=== PATIENT | male | born 1965 | race Native Hawaiian/Other Pacific Islander ===

== ENCOUNTER → 2017-06-07 | Outpatient (CLI) | payer MEDICAID ==
--- NOTE | 2017-06-07 11:32 | XR ---
EXAMINATION TYPE: XR knee complete LT DATE OF EXAM: 06/07/2017 COMPARISON: NONE HISTORY: Pain TECHNIQUE: 3 views are submitted. FINDINGS: Mild narrowing of the medial compartment knee joint and patellofemoral joint. Small amount of fluid i n the suprapatellar bursa.. Osseous structures are intact. No acute fracture seen. IMPRESSION: 1. No acute fracture or dislocation. 2. Mild arthropathy. If there is concern for internal derangement correlate with MRI.
== END | disposition home or self-care (01) ==
LOC: RADXRMAIN 10:25
PROVIDERS: ATTEND Family Medicine
DX: M12.862 Other specific arthropathies, not elsewhere classified, left knee (principal)

== ENCOUNTER 2017-06-20 13:18 | Day surgery (SDC) | payer MEDICAID ==
[~2017-06-20 13:18] MED LIST: LACTATED RINGERS 1,000 ML IV SCH
[2017-06-20] MEDS ORDERED: LIDOCAINE 1% 20 ML VIAL (10MG/ML) FOR IV START INTRADERMA ONE (13:27)
[2017-06-20 13:40] VITALS: TEMP 98.6
[2017-06-20] MEDS ORDERED: GLUCAGON 1 MG/ML VIAL ONE (14:04)
[2017-06-20] MEDS ORDERED: PROPOFOL 10 MG/ML 20 ML VIAL IV ONE (14:04)
--- NOTE | 2017-06-20 14:05 | P.GSHP ---
History of Present Illness H&P Date: 06/20/17 Chief Complaint: Screening colonoscopy This a 51-year-old male referred from Dr. Sissy de la fuente. Patient notes today for screening colonoscopy. Past Medical History Past Medical History: No Reported History History of Any Multi-Drug Resistant Organisms: None Reported Past Surgical History: Orthopedic Surgery Additional Past Surgical History / Comment(s): RIGHT HAND SURGERY (THUMB) Past Anesthesia/Blood Transfusion Reactions: Motion Sickness Past Psychological History: No Psychological Hx Reported Smoking Status: Never smoker Past Alcohol Use History: Rare Past Drug Use History: None Reported - Past Family History Mother Family Medical History: Cancer, Deep Vein Thrombosis (DVT) Father Family Medical History: Cancer Brother(s) Family Medical History: Cancer Additional Family Medical History / Comment(s): THREE DIFFERENT BROTHERS. Medications and Allergies Home Medications Medication Instructions Recorded Confirmed Type Multivitamins, Thera [Multivitamin 1 tab PO DAILY 06/18/17 06/20/17 History (formulary)] Allergies Allergy/AdvReac Type Severity Reaction Status Date / Time No Known Allergies Allergy Verified 06/18/17 15:56 Surgical - Exam Vital Signs Temp Pulse Resp BP Pulse Ox 98.6 F 84 16 115/81 95 06/20/17 13:32 06/20/17 13:32 06/20/17 13:32 06/20/17 13:32 06/20/17 13:32 - General well developed, no distress - Eyes PERRL - ENT normal pinna - Neck no masses - Respiratory normal expansion - Cardiovascular Rhythm: regular - Abdomen Abdomen: soft, non tender Assessment and Plan Assessment: We'll perform screening colonoscopy.
--- NOTE | 2017-06-20 14:16 | P.OP ---
Date of Procedure: 06/20/17 Preoperative Diagnosis: Screening colonoscopy Postoperative Diagnosis: Diverticulosis Procedure(s) Performed: Colonoscopy Anesthesia: MAC Surgeon: Omid Farfan Pathology: none sent Condition: stable Disposition: PACU Description of Procedure: The patient's placed on the endoscopy table lateral position. He received IV sedation. Digital rectal exam was performed which revealed no abnormalities. The prostate was symmetric without nodules. The flexible colonoscope was then placed patient anus passed throughout the entire colon. The ileocecal valve was visualized. The cecum, ascending and transverse colon appeared normal. In the descending; there is moderate diverticular changes. The scope was then brought back the rectum and this appeared normal. Scope was withdrawn for patient.
[2017-06-20 14:46] VITALS: BP 129/80; PULSE 77; RESP 16
== END 2017-06-20 14:54 | disposition home or self-care (01) ==
LOC: ORWHC2ENDO 13:18
PROVIDERS: ATTEND Surgery
DX: Z12.11 Encounter for screening for malignant neoplasm of colon (principal); K57.30 Diverticulosis of large intestine without perforation or abscess without bleeding
CPT/HCPCS: J1610; J2704; G0121; 45378

== ENCOUNTER → 2019-04-19 | Outpatient (CLI) | payer MEDICAID ==
--- NOTE | 2019-04-19 14:07 | CT ---
EXAMINATION TYPE: CT chest w con DATE OF EXAM: 04/19/2019 COMPARISON: None consult HISTORY: Prior Asbestos exposure. Complains of shortness of breath and dizziness on exertion CT DLP: 420.8 mGycm Automated exposure control for dose reduction was used. CONTRAST: CT scan of the chest is performed with IV Contrast, patient injected with 100 mL of Isovue 300. FINDINGS: LUNGS: The lungs are grossly clear, there is no concerning parenchymal mass or nodule identified. Pos sible minimal scarring or atelectatic changes at the lung bases There is no pleural effusion or pne umothorax seen. The tracheobronchial tree is patent. MEDIASTINUM: There are no greater than 1 cm hilar or mediastinal lymph nodes. No pericardial effusi on is seen. AORTA: Ascending aorta borderline aneurysmal at 4.3 cm. There are some coronary artery calcification s. Proximal descending aorta also ectatic at 3 cm.. OTHER: No additional significant abnormality is seen. IMPRESSION: Aortic aneurysm, follow-up recommended. Coronary artery disease.
== END | disposition home or self-care (01) ==
LOC: RADCTMAIN 11:14
PROVIDERS: ATTEND Family Medicine
DX: I25.10 Atherosclerotic heart disease of native coronary artery without angina pectoris (principal); I71.9 Aortic aneurysm of unspecified site, without rupture
CPT/HCPCS: 71260; Q9967

== ENCOUNTER 2020-11-12 19:09 | Emergency (ER) | payer MEDICAID ==
[2020-11-12 19:14] VITALS: TEMP 98.8
--- NOTE | 2020-11-12 19:41 | ED ---
Psych HPI - General Source: patient, police Mode of arrival: ambulatory <Kenton Pizarro - Last Filed: 11/12/20 22:32> <True Menendez - Last Filed: 11/13/20 01:14> - General Chief Complaint: Psychiatric Symptoms Stated Complaint: Petition Time Seen by Provider: 11/12/20 19:19 - History of Present Illness Initial Comments: This 54-year-old male with a history of depression and alcohol use in the past who presents emergency department for possible suicidal ideation. The patient reportedly made a comment to his that he was going to hang himself. The police were called and brought emergency department. The patient is currently petitioned by police. The patient is quite upset and states that he did not say this to his . He does admit to drinking today. He denies any physical complaints. The patient was quite agitated on arrival however was able to be talked down. Denies any suicidal or homicidal ideations at this time. (Kenton Pizarro) - Related Data Home Medications Medication Instructions Recorded Confirmed Escitalopram Oxalate [Lexapro] 20 mg PO DAILY 11/12/20 11/12/20 Mirtazapine [Remeron] 15 mg PO HS 11/12/20 11/12/20 QUEtiapine [SEROquel] 50 mg PO HS 11/12/20 11/12/20 Allergies Allergy/AdvReac Type Severity Reaction Status Date / Time No Known Allergies Allergy Verified 11/12/20 21:14 Review of Systems ROS Other: All systems not noted in ROS Statement are negative. <Kenton Pizarro - Last Filed: 11/12/20 22:32> ROS Other: All systems not noted in ROS Statement are negative. <True Menendez - Last Filed: 11/13/20 01:14> ROS Statement: Those systems with pertinent positive or pertinent negative responses have been documented in the HPI. Past Medical History Past Medical History: No Reported History History of Any Multi-Drug Resistant Organisms: None Reported Past Surgical History: Orthopedic Surgery Additional Past Surgical History / Comment(s): RIGHT HAND SURGERY (THUMB) Past Anesthesia/Blood Transfusion Reactions: Motion Sickness Past Psychological History: Depression Smoking Status: Current every day smoker Past Alcohol Use History: Rare Past Drug Use History: None Reported - Past Family History Mother Family Medical History: Cancer, Deep Vein Thrombosis (DVT) Father Family Medical History: Cancer Brother(s) Family Medical History: Cancer Additional Family Medical History / Comment(s): THREE DIFFERENT BROTHERS. <JuarezKenton - Last Filed: 11/12/20 22:32> General Exam Limitations: no limitations <JuarezKenton - Last Filed: 11/12/20 22:32> - General Exam Comments Initial Comments: Constitutional: Awake alert Appears comfortable Head: Normocephalic atraumatic Eyes: no conjunctival injection No scleral icterus EOMI Neck: No JVD Supple Heart: Regular rate rhythm normal S1-S2 no murmurs Lungs: Clear to auscultation bilaterally No wheezing No rales Abdomen: Soft nondistended nontender Extremities: Non edematous DP pulses intact Radial pulses intact Neuro: A&Ox3 No focal neurologic deficits Psych: He appears intoxicated and is quite agitated at this time. Denies suicidal ideation (Kenton Pizarro) Course <Kenton Pizarro - Last Filed: 11/12/20 22:32> <True Menendez - Last Filed: 11/13/20 01:14> Vital Signs 11/12/20 19:11 Temperature 98.8 F Pulse Rate 95 Respiratory 20 Rate Blood Pressure 138/83 O2 Sat by Pulse 96 Oximetry - Reevaluation(s) Reevaluation #1: 11/12/20 22:33 Patient is sleeping. Awaiting sobriety. Should be around midnight. Will need re- eval once sober to see if psych eval is required. (Kenton Pizarro) Reevaluation #2: 11/13/20 01:13 Record was reviewed (True Menendez) Reevaluation #3: 11/13/20 01:13 Patient's medically clear for psychiatric evaluation (True Menendez) Medical Decision Making <True Menendez - Last Filed: 11/13/20 01:14> - Medical Decision Making 54 male who was seen and evaluated by psychiatry here in the ER, patient originally presented to emergency room under alcohol intoxication. Patient is seen and evaluated here not currently suicidal or homicidal. Patient consents to safety and can be discharged home (True Menendez) - Lab Data Lab Results 11/12/20 Range/Units 19:43 Urine Opiates Screen Not Detected (NotDetected) Ur Oxycodone Screen Not Detected (NotDetected) Urine Methadone Screen Not Detected (NotDetected) Ur Propoxyphene Screen Not Detected (NotDetected) Ur Barbiturates Screen Detected H (NotDetected) U Tricyclic Antidepress Not Detected (NotDetected) Ur Phencyclidine Scrn Not Detected (NotDetected) Ur Amphetamines Screen Not Detected (NotDetected) U Methamphetamines Scrn Not Detected (NotDetected) U Benzodiazepines Scrn Not Detected (NotDetected) Urine Cocaine Screen Not Detected (NotDetected) U Marijuana (THC) Screen Not Detected (NotDetected) Disposition <Kenton Pizarro - Last Filed: 11/12/20 22:32> Is patient prescribed a controlled substance at d/c from ED?: No <True Menendez - Last Filed: 11/13/20 01:14> Clinical Impression: Alcohol intoxication Disposition: HOME SELF-CARE Condition: Fair Instructions (If sedation given, give patient instructions): Alcohol Intoxication (ED) Referrals: Sissy Mckee DO [Primary Care Provider] - 1-2 days
[2020-11-12 21:06] LABS: Amphetamine Screen,Urine Not Detected (NotDetected); Barbiturate Screen,Urine Detected (NotDetected); Benzodiazepines Screen,Urine Not Detected (NotDetected); Cocaine Screen,Urine Not Detected (NotDetected); Methadone Screen, Urine Not Detected (NotDetected); Opiate Screen,Urine Not Detected (NotDetected); Oxycodone Screen, Urine Not Detected (NotDetected); Phencyclidine Screen,Urine Not Detected (NotDetected); Tricyclic Antidepressant,Urine Not Detected (NotDetected); Urn Cannabinoid Scrn Not Detected (NotDetected)
[2020-11-13 01:34] VITALS: BP 150/92; PULSE 71; RESP 1
== END 2020-11-13 01:34 | disposition home or self-care (01) ==
LOC: EC 19:09
DX: F10.129 Alcohol abuse with intoxication, unspecified (principal); F32.9 Major depressive disorder, single episode, unspecified; F17.200 Nicotine dependence, unspecified, uncomplicated; Y90.9 Presence of alcohol in blood, level not specified
CPT/HCPCS: 80306; 82075; 99284

== ENCOUNTER → 2022-04-26 | Outpatient (CLI) | payer OTHER ==
--- NOTE | 2022-04-26 15:51 | MR ---
EXAMINATION TYPE: MR brain wo/w con DATE OF EXAM: 04/26/2022 COMPARISON: None HISTORY: Visual loss. TECHNIQUE: Multiplanar, multisequence images of the brain and brainstem is performed without and with IV contras t, utilizing 9 mL intravenous Gadavist . FINDINGS: Diffusion weighted images demonstrate no evidence of a recent infarct or other diffusion ab normality. Foci of T2 shine through demonstrated within the right frontal lobe cortex. There is no ex tra-axial fluid collection. Few periventricular and subcortical white matter T2/FLAIR hyperintense fo ci identified. The ventricular system and cisternal spaces are normal in size and appearance. The br ain volume is age appropriate. Midline structures demonstrate normal morphology. The craniocervical junction appears within normal limits. Post contrast images demonstrate no abnormal enhancement. The dural venous sinuses appear pa tent. 1.2 cm right maxillary sinus mucous retention cyst. The remaining visualized sinuses are clear and the globes are intact. IMPRESSION: 1. No acute/subacute ischemia or abnormal contrast enhancement. 2. Nonspecific white matter changes likely related to chronic microangiopathy.
== END | disposition home or self-care (01) ==
LOC: RADMRIMAIN 04-14 13:24
PROVIDERS: ATTEND Physician Assistant
DX: R90.82 White matter disease, unspecified (principal); H53.8 Other visual disturbances; R51.9 Headache, unspecified; R20.0 Anesthesia of skin; H53.121 Transient visual loss, right eye
CPT/HCPCS: 70553; A9585

== ENCOUNTER 2022-08-18 19:42 | Emergency (ER) | payer OTHER ==
[2022-08-18] MEDS ORDERED: SODIUM CHLORIDE 0.9% 1,000 ML IV ONE (20:40)
--- NOTE | 2022-08-18 21:12 | ED ---
General Adult HPI - General Source: patient, police, RN notes reviewed Mode of arrival: ambulatory Limitations: no limitations <Holly Lama - Last Filed: 08/19/22 16:20> <Comfort Calabrese - Last Filed: 08/23/22 07:28> - General Chief complaint: Psychiatric Symptoms Stated complaint: Mental Health Time Seen by Provider: 08/18/22 20:06 - History of Present Illness Initial comments: 56-year-old male with significant past medical history presents the emergency department via police escort with a chief complaint of suicidal ideation and worsening depression. He reports that earlier today he was making threats that he wanted to commit suicide. He reports that he was attempting to walk into oncoming traffic. He denies homicidal ideation at this time. He reports that he has been battling depressive and suicidal thoughts for "a long time." He denies any visual or auditory hallucinations. He denies any illicit drug use. He does report having a small amount of breath and prior to arrival. Denies any specific complaints such as headache, dizziness, lightheaded, cough, chest pain, shortness of breath, abdominal pain, nausea, vomiting, melena, hematochezia (Holly Lama) - Related Data Home Medications Medication Instructions Recorded Confirmed No Known Home Medications 08/18/22 08/18/22 Allergies Allergy/AdvReac Type Severity Reaction Status Date / Time No Known Allergies Allergy Verified 08/18/22 22:16 Review of Systems ROS Other: All systems not noted in ROS Statement are negative. <Holly Lama - Last Filed: 08/19/22 16:20> ROS Other: All systems not noted in ROS Statement are negative. <Comfort Calabrese - Last Filed: 08/23/22 07:28> ROS Statement: Those systems with pertinent positive or pertinent negative responses have been documented in the HPI. Past Medical History Past Medical History: No Reported History History of Any Multi-Drug Resistant Organisms: None Reported Past Surgical History: Orthopedic Surgery Additional Past Surgical History / Comment(s): RIGHT HAND SURGERY (THUMB) Past Anesthesia/Blood Transfusion Reactions: Motion Sickness Past Psychological History: Depression Smoking Status: Current every day smoker Past Alcohol Use History: Rare Past Drug Use History: None Reported - Past Family History Mother Family Medical History: Cancer, Deep Vein Thrombosis (DVT) Father Family Medical History: Cancer Brother(s) Family Medical History: Cancer Additional Family Medical History / Comment(s): THREE DIFFERENT BROTHERS. <Holly Lama - Last Filed: 08/19/22 16:20> General Exam Limitations: no limitations <DainaHolly - Last Filed: 08/19/22 16:20> General appearance: alert, in no apparent distress Head exam: Present: atraumatic, normocephalic, normal inspection Eye exam: Present: normal appearance, PERRL, EOMI. Absent: scleral icterus, conjunctival injection, periorbital swelling ENT exam: Present: normal exam, mucous membranes moist Neck exam: Present: normal inspection. Absent: tenderness, meningismus, lymphadenopathy Respiratory exam: Present: normal lung sounds bilaterally. Absent: respiratory distress, wheezes, rales, rhonchi, stridor Cardiovascular Exam: Present: regular rate, normal rhythm, normal heart sounds. Absent: systolic murmur, diastolic murmur, rubs, gallop, clicks GI/Abdominal exam: Present: soft, normal bowel sounds. Absent: distended, tenderness, guarding, rebound, rigid Extremities exam: Present: normal inspection, full ROM, normal capillary refill. Absent: tenderness, pedal edema, joint swelling, calf tenderness Back exam: Present: normal inspection Neurological exam: Present: alert, oriented X3, CN II-XII intact Psychiatric exam: Present: depressed Skin exam: Present: warm, dry, intact, normal color. Absent: rash <Comfort Calabrese - Last Filed: 08/23/22 07:28> Course <DainaHolly - Last Filed: 08/19/22 16:20> Vital Signs 08/18/22 08/20/22 08/21/22 19:44 06:00 11:50 Temperature 98.0 F 98.1 F Pulse Rate 100 100 65 Respiratory 20 15 18 Rate Blood Pressure 144/94 100/62 117/72 O2 Sat by Pulse 99 99 98 Oximetry 08/22/22 07:35 Temperature 97.9 F Pulse Rate 75 Respiratory 16 Rate Blood Pressure 107/73 O2 Sat by Pulse 99 Oximetry - Reevaluation(s) Reevaluation #1: 08/19/22 01:31 EPS in to evaluate the patient. (Holly Lama) Reevaluation #2: 08/19/22 03:09 Case discussed with EPS who reveals the patient is from [facility]. Dr. Jones aware who will fax over a transfer request. Patient will await psychiatric placement. (Holly Lama) Medical Decision Making - Lab Data Result diagrams: 08/18/22 20:05 08/18/22 20:05 <Holly Lama - Last Filed: 08/19/22 16:20> - Lab Data Result diagrams: 08/18/22 20:05 08/18/22 20:05 <Comfort Calabrese - Last Filed: 08/23/22 07:28> - Medical Decision Making Was pt. sent in by a medical professional or institution (, PA, NUCLEAR MEDICINE SUPERVISOR, urgent care, hospital, or [facility]...) When possible be specific @ -[No] Did you speak to anyone other than the patient for history (EMS, parent, family, police, friend...)? What history was obtained from this source @ -[No] Did you review nursing and triage notes (agree or disagree)? Why? @ -[I reviewed and agree with nursing and triage notes] Were old charts reviewed (outside hosp., previous admission, EMS record, old EKG, old radiological studies, urgent care reports/EKG's, [facility] records)? Report findings @ -[No old charts were reviewed] Differential Diagnosis (chest pain, altered mental status, abdominal pain women, abdominal pain men, vaginal bleeding, weakness, fever, dyspnea, syncope, headache, dizziness, GI bleed, back pain, seizure, CVA, palpatations, mental health, musculoskeletal)? @ -[not applicable] EKG interpreted by me (3pts min.). @ -[As above] X-rays interpreted by me (1pt min.). @ -[None done] CT interpreted by me (1pt min.). @ -[None done] U/S interpreted by me (1pt. min.). @ -[None done] What testing was considered but not performed or refused? (CT, X-rays, U/S, labs)? Why? @ -[None] What meds were considered but not given or refused? Why? @ -[None] Did you discuss the management of the patient with other professionals (professionals i.e. , PA, NUCLEAR MEDICINE SUPERVISOR, lab, RT, psych nurse, social worker clinical, dental cream maker, teacher, ambulance officer, case making machine operator)? Give summary @ -[No] Was smoking cessation discussed for >3mins.? @ -[No] Was critical care preformed (if so, how long)? @ -[No] Were there social determinants of health that impacted care today? How? (Home lessness, low income, unemployed, alcoholism, drug addiction, transportation, low edu. Level, literacy, decrease access to med. care, longterm, rehab)? @ -[No] Was there de-escalation of care discussed even if they declined (Discuss DNR or withdrawal of care, Hospice)? DNR status @ -[No] What co-morbidities impacted this encounter? (DM, HTN, Smoking, COPD, CAD, Cancer, CVA, ARF, Chemo, Hep., AIDS, mental health diagnosis, sleep apnea, morbid obesity)? @ -[None] Was patient admitted / discharged? Hospital course, mention meds given and route, prescriptions, significant lab abnormalities, going to OR and other pertinent info. @ -Transfer to psychiatric facility. This is a 56-year-old male who presents to the emergency department with suicidal ideation and depression. Patient had a thorough history and physical exam performed heart rate regular rate and rhythm, lungs clear to auscultation bilaterally abdomen is soft and non-tender. The patient appears depressed. He was given 1 mg of by mouth Ativan. He is refusing IV at this time. Blood work and Covid tests were unremarkable. He was seen and evaluated by the EPS nurse who believes the klaus ent meets inpatient psychiatric placement. [place] and we will wait for transfer and placement and [facility]. Case discussed with KEV Zamora who agrees with plan of care. Undiagnosed new problem with uncertain prognosis? @ -[No] Drug Therapy requiring intensive monitoring for toxicity (Heparin, Nitro, Insulin, Cardizem)? @ -[No] Were any procedures done? @ -[No] Diagnosis/symptom? @ -Suicidal Ideation - Depression Acute, or Chronic, or Acute on Chronic? @ -Acute Uncomplicated (without systemic symptoms) or Complicated (systemic symptoms)? @ -uncomplicated Side effects of treatment? @ -[No] Exacerbation, Progression, or Severe Exacerbation? @ -[No] Poses a threat to life or bodily function? How? (Chest pain, [place], DE, pneumonia, PE, COPD, DKA, ARF, appy, cholecystitis, CVA, Diverticulitis, Homicidal, Suicidal, threat to staff... and all critical care pts) @ -high likelihood, including (Holly Lama) I filled the certification out on the patient (BharatiComfort Annalisa) - Lab Data Lab Results 08/18/22 08/18/22 08/18/22 Range/Units 20:05 20:05 20:05 WBC 5.2 (3.8-10.6) k/uL RBC 4.90 (4.30-5.90) m/uL Hgb 15.0 (13.0-17.5) gm/dL Hct 44.1 (39.0-53.0) % MCV 90.0 (80.0-100.0) fL MCH 30.6 (25.0-35.0) pg MCHC 34.0 (31.0-37.0) g/dL RDW 11.9 (11.5-15.5) % Plt Count 292 (150-450) k/uL MPV 7.8 Neutrophils % 63 % Lymphocytes % 25 % Monocytes % 7 % Eosinophils % 2 % Basophils % 0 % Neutrophils # 3.3 (1.3-7.7) k/uL Lymphocytes # 1.3 (1.0-4.8) k/uL Monocytes # 0.4 (0-1.0) k/uL Eosinophils # 0.1 (0-0.7) k/uL Basophils # 0.0 (0-0.2) k/uL Sodium 142 (137-145) mmol/L Potassium 3.7 (3.5-5.1) mmol/L Chloride 103 (98-107) mmol/L Carbon Dioxide 28 (22-30) mmol/L Anion Gap 11 mmol/L BUN 8 L (9-20) mg/dL Creatinine 0.69 (0.66-1.25) mg/dL Est GFR (CKD-EPI)AfAm >90 (>60 ml/min/1.73 sqM) Est GFR (CKD-EPI)NonAf >90 (>60 ml/min/1.73 sqM) Glucose 91 (74-99) mg/dL Calcium 8.9 (8.4-10.2) mg/dL Urine Opiates Screen (NotDetected) Ur Oxycodone Screen (NotDetected) Urine Methadone Screen (NotDetected) Ur Propoxyphene Screen (NotDetected) Ur Barbiturates Screen (NotDetected) U Tricyclic Antidepress (NotDetected) Ur Phencyclidine Scrn (NotDetected) Ur Amphetamines Screen (NotDetected) U Methamphetamines Scrn (NotDetected) U Benzodiazepines Scrn (NotDetected) Urine Cocaine Screen (NotDetected) U Marijuana (THC) Screen (NotDetected) Coronavirus (PCR) Not Detected (Not Detectd) 08/18/22 08/22/22 Range/Units 20:10 01:43 WBC (3.8-10.6) k/uL RBC (4.30-5.90) m/uL Hgb (13.0-17.5) gm/dL Hct (39.0-53.0) % MCV (80.0-100.0) fL MCH (25.0-35.0) pg MCHC (31.0-37.0) g/dL RDW (11.5-15.5) % Plt Count (150-450) k/uL MPV Neutrophils % % Lymphocytes % % Monocytes % % Eosinophils % % Basophils % % Neutrophils # (1.3-7.7) k/uL Lymphocytes # (1.0-4.8) k/uL Monocytes # (0-1.0) k/uL Eosinophils # (0-0.7) k/uL Basophils # (0-0.2) k/uL Sodium (137-145) mmol/L Potassium (3.5-5.1) mmol/L Chloride (98-107) mmol/L Carbon Dioxide (22-30) mmol/L Anion Gap mmol/L BUN (9-20) mg/dL Creatinine (0.66-1.25) mg/dL Est GFR (CKD-EPI)AfAm (>60 ml/min/1.73 sqM) Est GFR (CKD-EPI)NonAf (>60 ml/min/1.73 sqM) Glucose (74-99) mg/dL Calcium (8.4-10.2) mg/dL Urine Opiates Screen Not Detected (NotDetected) Ur Oxycodone Screen Not Detected (NotDetected) Urine Methadone Screen Not Detected (NotDetected) Ur Propoxyphene Screen Not Detected (NotDetected) Ur Barbiturates Screen Not Detected (NotDetected) U Tricyclic Antidepress Not Detected (NotDetected) Ur Phencyclidine Scrn Not Detected (NotDetected) Ur Amphetamines Screen Not Detected (NotDetected) U Methamphetamines Scrn Not Detected (NotDetected) U Benzodiazepines Scrn Not Detected (NotDetected) Urine Cocaine Screen Not Detected (NotDetected) U Marijuana (THC) Screen Not Detected (NotDetected) Coronavirus (PCR) Not Detected (Not Detectd) Disposition Is patient prescribed a controlled substance at d/c from ED?: No Time of Disposition: 16:23 <Holly Lama - Last Filed: 08/19/22 16:20> <Comfort Calabrese - Last Filed: 08/23/22 07:28> Clinical Impression: Depression, Suicidal ideation Disposition: TRANSFER TO PSYCH HOSP/UNIT Condition: Fair Referrals: Sissy Mckee DO [Primary Care Provider] - 1-2 days
[2022-08-18 21:17] LABS: Amphetamine Screen,Urine Not Detected (NotDetected); Barbiturate Screen,Urine Not Detected (NotDetected); Benzodiazepines Screen,Urine Not Detected (NotDetected); Cocaine Screen,Urine Not Detected (NotDetected); Methadone Screen, Urine Not Detected (NotDetected); Opiate Screen,Urine Not Detected (NotDetected); Oxycodone Screen, Urine Not Detected (NotDetected); Phencyclidine Screen,Urine Not Detected (NotDetected); Tricyclic Antidepressant,Urine Not Detected (NotDetected); Urn Cannabinoid Scrn Not Detected (NotDetected)
[2022-08-18 21:20] LABS: Basophils % (A) 0 %; Eosinophils # (A) 0.1 k/uL (0-0.7); Eosinophils % (A) 2 %; HCT 44.1 % (39.0-53.0); Lymphocytes # (A) 1.3 k/uL (1.0-4.8); Lymphocytes % (A) 25 %; MCH 30.6 pg (25.0-35.0); Mean Platelet Volume 7.8; Monocytes # (A) 0.4 k/uL (0-1.0); Monocytes % (A) 7 %; Neutrophils # (A) 3.3 k/uL (1.3-7.7); Neutrophils % (A) 63 %; Platelet Count 292 k/uL (150-450); RDW 11.9 % (11.5-15.5); WBC 5.2 k/uL (3.8-10.6)
[2022-08-18] MEDS ORDERED: LORazepam 1 MG TAB PO STA (21:26)
[2022-08-18 21:31] LABS: African American GFR (CKD) >90 (>60 ml/min/1.73 sqM); Anion Gap 11 mmol/L; Blood Urea Nitrogen 8 mg/dL (9-20); Calcium 8.9 mg/dL (8.4-10.2); Carbon Dioxide 28 mmol/L (22-30); Chloride 103 mmol/L (98-107); Glucose 91 mg/dL (74-99); Non-African American GFR(CKD) >90 (>60 ml/min/1.73 sqM); Potassium 3.7 mmol/L (3.5-5.1); Sodium 142 mmol/L (137-145)
[2022-08-19] MEDS ORDERED: LORazepam 1 MG TAB PO STA (11:55)
[2022-08-20] MEDS ORDERED: LORazepam 1 MG TAB PO STA (19:49)
[2022-08-20] MEDS ORDERED: MIRTAZAPINE 15 MG TAB PO STA (20:11)
[2022-08-22 07:43] VITALS: BP 107/73; PULSE 75; RESP 16; TEMP 97.9
== END 2022-08-22 07:45 ==
LOC: EC 19:42
DX: F32.A Depression, unspecified (principal); R45.851 Suicidal ideations; F17.200 Nicotine dependence, unspecified, uncomplicated; Z20.822 Contact with and (suspected) exposure to COVID-19
CPT/HCPCS: 36415; 80048; 80306; 82075; 85025; 87635; 99285